=== PATIENT | male | born 1990 | race Caucasian/White ===

== ENCOUNTER 2022-01-12 02:34 | Observation (INO) | payer SELFPAY ==
[~2022-01-12] VITALS: Ht 167.6 cm; Wt 81.8 kg
[2022-01-12] VITALS (12 sets, daily range): BP systolic 96–124; BP diastolic 54–66; PULSE 54–93; TEMP 98.3–99.8
[2022-01-12 02:56] LABS: BASO # 0.1 K/mm3 (0.0-0.2); BASO % 0.3 % (0.0-2.0); EOS # 0.1 K/mm3 (0.0-0.7); EOS % 0.3 % (0.0-4.0); GRAN # 19.5 K/mm3 (1.4-6.5); GRAN % 83.5 % (42.2-75.2); HEMATOCRIT 48.5 % (42.0-52.0); HEMOGLOBIN 16.2 g/dl (13.5-18.0); LYMPH # 2.2 K/mm3 (1.2-3.4); LYMPH % 9.3 % (20.0-51.0); MEAN CELL VOLUME 89 fl (80.0-100.0); MEAN CORPUSCULAR HEMOGLOBIN 30 pg (27-31); MEAN CORPUSCULAR HGB CONC 33 g/dl (33.0-37.0); MEAN PLATELET VOLUME 9.1 fl (7.4-10.4); MONO # 1.4 K/mm3 (0.1-0.6); MONO % 6.1 % (1.7-9.3); PLATELET COUNT 344 K/mm3 (130-400); RED BLOOD COUNT 5.45 M/mm3 (4.20-5.60); REDCELL DISTRIBUTION WIDTH-CV 12.1 % (11.5-14.5)
[2022-01-12 03:10] LABS: BILIRUBIN,TOTAL 0.6 mg/dL (0.2-1.2); C-REACTIVE PROTEIN 0.07 mg/dL (0.00-0.50); CALCIUM 9.5 mg/dL (8.4-10.2); CREATININE, serum 0.82 mg/dL (0.72-1.25); POTASSIUM 3.7 mmol/L (3.5-4.5)
--- NOTE | 2022-01-12 10:20 | NUR ---
Patient NPO for possible appendectomy today. Shift assessment performed. IV fluids running as ordered. Patient is yoruba speaking only. Communicating throught laborer demolition. Patient denies any pain, discomfort, SOA, or further needs at this time. VSS. Patient A&O. Friends at the bedside. Call light in reach.
--- NOTE | 2022-01-12 11:55 | NUR ---
FLACO and SW student met with the patient and his friend to discuss discharge plan. The patient is khmer speaking. SW utilized the interpretor services. The patient lives in [place] with his two siblings and a friend. He states that his brothers are both over the age of 18. He reports independence with ADLs and does not have any DME. The patient does not have a PCP or follow up at any clinic. He states that this is the first time at any health care services. He states that he just moved up here from [facility] and is in the process to get asylum to be able to get a job. He is self pay. He states that he is and his , Bree (ph#[phone]), and their [id number] son live back in [facility]. The patient has his brother, Melly Jensen (ph#[phone]), listed as his person to contact. The patient plans on returning home with his brothers and friend upon discharge. SW to follow as needed. *Discharge plan: home*
--- NOTE | 2022-01-12 12:20 | NUR ---
Patient taken down for surgery. Transported by MOHSEN Kessler.
[2022-01-12] MEDS ORDERED: MOTRIN 600600 MG/TAB PO (13:51)
[2022-01-12] MEDS ORDERED: NORCO 325 MG-51 TAB PO (13:51)
--- NOTE | 2022-01-12 14:39 | NUR ---
Patient up to room from OR. VSS. Patient A&O. C/O mild nausea. Dynamap in use for post op vitals. Surgical sites and CDI. Call light ihn reach.
--- NOTE | 2022-01-12 16:21 | NUR ---
Patient up to the bathroom. Denies any pain, discomfort, SOA, or N/V. Diet progressing without N/V. Patient A&O. VSS.
--- NOTE | 2022-01-12 22:19 | NUR ---
Received report from day shift. Patient alert and oriented x4. VSS. Patient here for lap appy. Patient denies pain. Assessment performed. Lungs CTA, bowel sounds present. Patient reports passing gas and tolerating food with no nausea or vomiting. Patient has been ambulating to bathroom independently. call light within reach.
[2022-01-13 03:16] VITALS: BP 109/56; PULSE 73; TEMP 98.3
--- NOTE | 2022-01-13 05:32 | NUR ---
Patient had an uneventful night. Patient denied pain. IV zosyn administered. Patient is taking PO fluids well, ambulating without difficulty.
[2022-01-13 07:47] VITALS: BP 110/57; PULSE 69; TEMP 97.7
--- NOTE | 2022-01-13 10:10 | NUR ---
PT RESTING IN BED. EATING AND DRINKING NO NAUSEA VOMITING. PT HAS NO LITHUANIAN. HAS NOT ROUNDED YET. WAITING FOR ORDERS FOR DISCHARGE.
--- NOTE | 2022-01-13 11:38 | NUR ---
First visit from the service technician. No needs right now.
[2022-01-13 12:14] VITALS: BP 114/58; PULSE 71; TEMP 97.9
[2022-01-13] MEDS ORDERED: AMOXICILLIN 8751 TAB PO ×2 (13:36→13:47)
[2022-01-13] MEDS ORDERED: MOTRIN 600600 MG/TAB PO (13:48)
[2022-01-13] MEDS ORDERED: NORCO 325 MG-51 TAB PO (13:50)
--- NOTE | 2022-01-13 14:37 | NUR ---
DISCHARGE INSTRUCTIONS REVIEWED WITH PT. PT VERBALIZED UNDERSTANDING. PT LEFT UNIT AMBULATORY.
== END 2022-01-13 14:30 | disposition home or self-care (01) ==
LOC: COL.ER 02:34 → SURG 04:36
PROVIDERS: Family Medicine; ADMIT Surgery
DX: K35.80 Unspecified acute appendicitis (principal); F17.210 Nicotine dependence, cigarettes, uncomplicated
CPT/HCPCS: G0378; J0330; J1100; J1885; J2270; J2405; J2543; J2704; J3010; J7120; Q9967

== ENCOUNTER 2024-04-10 11:08 | Emergency (ER) | payer SELFPAY ==
[~2024-04-10 11:08] MED LIST: AMOXICILLIN 8751 TAB PO; MOTRIN 600600 MG/TAB PO; NORCO 325 MG-51 TAB PO
[2024-04-10 11:19] VITALS: BP 116/76; TEMP 98.3
[2024-04-10] MEDS ORDERED: PERCOCET 325 MG1 TA2 PO (12:08)
[2024-04-10 12:44] VITALS: PULSE 86
== END 2024-04-10 12:45 | disposition home or self-care (01) ==
LOC: COL.ER 11:08
DX: S82.832A Other fracture of upper and lower end of left fibula, initial encounter for closed fracture (principal); X50.1XXA Overexertion from prolonged static or awkward postures, initial encounter; Y93.61 Activity, american tackle football